=== PATIENT | female | born 1995 | race Asian ===

== ENCOUNTER 2017-03-01 00:41 | Emergency (ER) | payer SELFPAY ==
[~2017-03-01] VITALS: Ht 157.5 cm; Wt 80.0 kg
[2017-03-01] MEDS ORDERED: IBUPROFEN 600 MG TABLET PO ONE (02:15)
[2017-03-01] MEDS ORDERED: ACETAMINOPHEN/CODEINE 300-30 MG TABLET PO ONE (02:15)
[2017-03-01 02:39] VITALS: BP 100/55
== END 2017-03-01 02:48 | disposition home or self-care (01) ==
LOC: EMS 00:44
DX: S43.402A Unspecified sprain of left shoulder joint, initial encounter (principal); S63.617A Unspecified sprain of left little finger, initial encounter; J45.909 Unspecified asthma, uncomplicated; V49.88XA Car occupant (driver) (passenger) injured in other specified transport accidents, initial encounter; Y93.89 Activity, other specified; Y92.89 Other specified places as the place of occurrence of the external cause; Y99.8 Other external cause status
CPT/HCPCS: 29240; 99284

== ENCOUNTER 2017-06-02 05:29 | Emergency (ER) | payer SELFPAY ==
[~2017-06-02] VITALS: Ht 157.5 cm; Wt 95.5 kg
[2017-06-02] MEDS ORDERED: LIDOCAINE HCL 1% 10 ML VIAL INJ ONE (06:30)
[2017-06-02] MEDS ORDERED: SODIUM CHLORIDE 0.9% 250 ML IRRIG SOLUTION BOTTLE IRRIG ONE (06:30)
[2017-06-02] MEDS ORDERED: HYDROCODONE/ACETAMINOPHEN 5-325 MG TABLET PO ONE (06:30)
[2017-06-02] MEDS ORDERED: PERTUSS(ACELL),DIPH,TET VAC/PF 0.5 ML VIAL IM ONE (06:30)
[2017-06-02 10:10] VITALS: BP 118/77
== END 2017-06-02 10:23 | disposition home or self-care (01) ==
LOC: EMS 05:30
DX: S91.312A Laceration without foreign body, left foot, initial encounter (principal); J45.909 Unspecified asthma, uncomplicated; W25.XXXA Contact with sharp glass, initial encounter; Y93.41 Activity, dancing; Y92.89 Other specified places as the place of occurrence of the external cause; Y99.8 Other external cause status
CPT/HCPCS: 12002; 73630; 90471; 90715; 99284; J3490